=== PATIENT | female | born 1945 | race Two or more races ===

== ENCOUNTER 2024-08-13 07:16 | Emergency (ER) | payer OTHER ==
[~2024-08-13] VITALS: Ht 160 cm; Wt 72.6 kg
[~2024-08-13 07:16] MED LIST: CRESTOR20 MG; LEVSIN0.125 MG PO; NAPROXEN500 M1; NEURONTIN600 MG; RELAFEN500 MG PO; SYNTHROID75 MCG; TOPROL XL25 MG; ZANTAC300 MG PO; ZOFRAN4 MG PO
[2024-08-13] MEDS ORDERED: LIPITOR40 MG PO (07:27)
[2024-08-13] MEDS ORDERED: ANTIVERT25 M2 PO (07:28)
[2024-08-13 07:29] VITALS: BP 126/75; O2SAT 100
[2024-08-13] MEDS ORDERED: 0.9 % SODIUM CHLORIDE 500 ML IV STA (08:13)
[2024-08-13] MEDS ORDERED: ONDANSETRON HCL 2 MG/ML VIAL IV ONE (08:15)
[2024-08-13] MEDS ORDERED: ONDANSETRON HCL 2 MG/ML VIAL ONE ×4 (08:27→08:28)
[2024-08-13 08:55] LABS: HEMOGLOBIN 13.4 g/dL (12.0-15.00); MEAN CELL VOLUME 80.1 fL (80.00-100.00); MEAN CORPUSCULAR HEMOGLOBIN 26.1 pg (27.00-32.0); MEAN CORPUSCULAR HGB CONC 32.6 g/dl (32.0-36.0); PLATELET COUNT 197 K/uL (150-450); RED BLOOD COUNT 5.12 M/uL (4.00-6.00); RED CELL DISTRIBUTION WIDTH 14.6 % (11.5-14.5)
[2024-08-13 09:07] LABS: PH,URINE 5.5 (5.0-8.0); URINE APPEARANCE Clear; URINE BILIRRUBIN Negative (NEGATIVE); URINE BLOOD Negative; URINE COLOR Yellow; URINE GLUCOSE Negative (NEGATIVE); URINE KETONE Trace (NEGATIVE); URINE LEUKOCYTE Trace; URINE NITRATE Negative; URINE PROTEIN Trace (NEGATIVE); URINE UROBILINOGEN 0.2 E.U./dl
[2024-08-13 09:10] LABS: URINE BACTERIA 74.6 uL (0.0-1933); URINE EPITHELIAL CELLS 13.9 uL (0.0-38.8); URINE RBC 11.1 uL (0.0-20.8); URINE WBC 10.5 uL (0.0-23.2)
[2024-08-13 09:13] LABS: URINE CAST 0.58 uL (0.0-1.40)
[2024-08-13 09:36] LABS: CALCIUM 9.4 mg/dL (8.5-10.1); CREATININE SERUM 0.94 mg/dL (0.55-1.02); GFR 57.74; POTASSIUM 4.27 mEq/L (3.5-5.1)
== END 2024-08-13 10:00 | disposition home or self-care (01) ==
LOC: ER 07:18
PROVIDERS: General Practice
DX: U07.1 COVID-19 (principal); R11.10 Vomiting, unspecified; I10 Essential (primary) hypertension; E03.8 Other specified hypothyroidism; E11.9 Type 2 diabetes mellitus without complications
CPT/HCPCS: 36415; 96365; 96366; 99282; J2405; J7042